=== PATIENT | male | born 1980 | race Caucasian/White ===

== ENCOUNTER 2016-09-09 18:37 | Emergency (ER) | payer SELFPAY ==
[2016-09-09] MEDS ORDERED: CEPHALEXIN 500 MG CAPSULE PO ONE (19:21)
[2016-09-09] MEDS ORDERED: LIDOCAINE 1% INJ-PF (10 MG/ML) 30 ML SDV INJ ONE (19:21)
[2016-09-09] MEDS ORDERED: OXYCODONE-ACETAMINOPHEN 5-325 MG TABLET PO ONE (19:21)
--- NOTE | 2016-09-09 19:22 | ER Document Report ---
ED Skin Rash/Insect Bite/Abscs - General Chief Complaint: Abscess Stated Complaint: POSSIBLE ABCESS Time Seen by Provider: 09/09/16 19:13 Notes: Patient is a 35-year-old male who presents with right axilla tenderness, swelling. 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 Concern for abscess. Denies any fever, chills. Admits to drainage from 2 sites previously. History states that she is worried about. TRAVEL OUTSIDE OF THE [place] IN LAST 30 DAYS: No - Related Data Allergies/Adverse Reactions: No Known Allergies Allergy (Verified 09/09/16 18:46) Past Medical History - Social History Smoking Status: Unknown if Ever Smoked Chew tobacco use (# tins/day): No Frequency of alcohol use: None Drug Abuse: None Family History: Reviewed & Not Pertinent Patient has suicidal ideation: No Patient has homicidal ideation: No Renal/ Medical History: Denies: Hx Peritoneal Dialysis Surgical Hx: Negative Review of Systems - Review of Systems Constitutional: No symptoms reported Skin: See HPI -: Yes All other systems reviewed and negative Physical Exam - Vital signs Vitals: Temp Pulse Resp BP Pulse Ox 98.8 F 70 16 116/72 99 09/09/16 18:46 09/09/16 18:46 09/09/16 18:46 09/09/16 18:46 09/09/16 18:46 - General General appearance: Appears well, Alert In distress: None - Respiratory Respiratory status: No respiratory distress Chest status: Nontender Breath sounds: Normal Chest palpation: Normal - Cardiovascular Rhythm: Regular Heart sounds: Normal auscultation Murmur: No - Extremities General upper extremity: Normal inspection, Nontender, Normal color, Normal ROM , Normal strength, Normal temperature. No: Edema General lower extremity: Normal inspection, Nontender, Normal color, Normal ROM , Normal strength, Normal temperature, Normal weight bearing - Skin Notes: Evidence of folliculitis in the right axilla. 3 areas erythema, tenderness to palpation, induration. Course - Re-evaluation Re-evalutation: 09/09/16 19:21 Patient is a 35-year-old male is hemodynamic stable, no distress and afebrile. 3 areas of the axilla were I&D for purulent drainage. Wound culture sent. Will discharge patient home on Keflex, instructed to use warm compresses and keep the areas clean and dry. Can follow-up with surgery if symptoms persist over the next couple weeks. - Vital Signs Vital signs: Temp Pulse Resp BP Pulse Ox 98.8 F 74 17 133/83 H 100 09/09/16 18:46 09/09/16 20:54 09/09/16 20:54 09/09/16 20:54 09/09/16 20:54 Procedures - Incision and Drainage Right Arm Type: Simple Anesthetic type: 1% Lidocaine mL's of anesthetic: 8 Blade size: 11 I&D procedure: Betadine prep applied Incision Method: Incision made by scalpel Amount/type of drainage: purulent drainage, 2 cc Adult Front & Back picture: 1 - right axilla, three areas all measuring less sonja 2cm Discharge - Discharge Clinical Impression: Folliculitis Condition: Good Disposition: HOME, SELF-CARE Instructions: Cephalexin ([facility]), Folliculitis ([facility]), Oral Narcotic Medication ( [facility]), Post Incision and Drainage Prescriptions: Oxycodone HCl/Acetaminophen [Percocet 5-325 mg Tablet] 1 tab PO Q6HP PRN #15 tab PRN Reason: Cephalexin Monohydrate [Keflex 500 mg Capsule] 500 mg PO QID #20 capsule Forms: Return to Work Referrals: ENOC FLYNN MD [ACTIVE STAFF] - Follow up as needed
[2016-09-09 20:58] VITALS: BP 133/83
== END 2016-09-09 20:58 | disposition home or self-care (01) ==
LOC: ER 18:37
PROC: 0H9BXZZ Drainage of Right Upper Arm Skin, External Approach (ICD-10-PCS; principal; 2016-09-09)
DX: L73.9 Follicular disorder, unspecified (principal)
CPT/HCPCS: 99283; 87070; 87205; 87075; 87077; 87186; 10060; J3490; A6266